=== PATIENT | male | born 1975 | race Two or more races ===

== ENCOUNTER 2017-01-21 09:15 | Emergency (ER) | payer MEDICAID ==
[~2017-01-21] VITALS: Ht 188 cm; Wt 121.0 kg
[2017-01-21 10:58] VITALS: BP 128/89
== END 2017-01-21 11:33 | disposition home or self-care (01) ==
LOC: ER 11:15
DX: R42 Dizziness and giddiness (principal); F17.200 Nicotine dependence, unspecified, uncomplicated
CPT/HCPCS: 99281